=== PATIENT | male | born 1985 | race Two or more races ===

== ENCOUNTER 2022-12-19 17:10 | Inpatient (IN) | payer MEDICAID ==
[~2022-12-19] VITALS: Ht 177.8 cm; Wt 116.4 kg
[2022-12-19 18:38] LABS: Basophils # (auto) 0 10 ^3/uL (0-0.2); Basophils % (auto) 0.2 % (0.0-2.0); Eosinophils # (auto) 0.8 10 ^3/uL (0-0.8); Eosinophils % (auto) 5.7 % (0.0-7.0); Lymphocytes # (auto) 2.7 10 ^3/uL (0.4-5.4); Lymphocytes % (auto) 18.5 % (10.0-50.0); Mean Corpuscular Hemoglobin 30.1 pg (28.0-32.0); Mean Corpuscular Hgb Conc. 34.9 g/dL (32.0-36.0); Mean Corpuscular Volume 86.4 fL (80.0-100.0); Monocytes # (auto) 1.4 10 ^3/uL (0-1.3); Monocytes % (auto) 9.5 % (0.0-12.0); Neutrophils # (auto) 9.7 10 ^3/uL (1.6-8.6); Neutrophils % (auto) 66.1 % (37.0-80.0); Red Blood Cells 4.98 10^6/uL (4.5-5.90); White Blood Cell 14.7 10^3/uL (4.4-10.8)
[2022-12-19 18:40] LABS: Calcium 8.5 mg/dL (8.5-10.1); Potassium 3.8 mmol/L (3.5-5.1)
[2022-12-19 18:43] LABS: BUN/Creatinine Ratio 13.1; Bilirubin, Total 0.5 mg/dL (0.2-1.0); Total Protein 7.4 g/dL (6.4-8.2)
[2022-12-19] MEDS ORDERED: cefTRIAXone 1GM/50ML D5W 50 ML IV ONE (21:00)
[2022-12-19] MEDS ORDERED: metroNIDAZOLE 500MG/100ML 100 ML IV ONE (21:00)
[2022-12-19] MEDS ORDERED: SODIUM CHLORIDE 0.9% 1,000 ML IV ONE (21:00)
[2022-12-19] MEDS ORDERED: MORPHINE SULFATE 4 MG/ML SYR/VIAL IV ONE (21:00)
[2022-12-19] MEDS ORDERED: ONDANSETRON HCL 4 MG/2 ML VIAL IV ONE (21:00)
[2022-12-19] MEDS ORDERED: ACETAMINOPHEN 325 MG TAB PO PRN (22:30)
[2022-12-19] MEDS ORDERED: D5W/SOD CHLO 0.9% 1,000 ML IV SCH (22:30)
[2022-12-19] MEDS ORDERED: ONDANSETRON HCL 4 MG/2 ML VIAL IV PRN (22:30)
[2022-12-19 23:33] LABS: Urine Bacteria NONE SEEN /hpf (None Seen); Urine Blood TRACE /uL (Negative); Urine Mucus FEW (None Seen); Urine Specific Gravity 1.034 (1.001-1.035); Urine WBC 2 /hpf (0 - 3)
[2022-12-19] MEDS ORDERED: MORPHINE SULFATE INJ 2 MG/ml SYRG IV PRN (23:45)
[2022-12-19] MEDS ORDERED: NITROGLYCERIN 0.4 MG SL TAB SL PRN (23:45)
[2022-12-20] MEDS: D5W/SOD CHL 0.45% 1,000 ML IV SCH ×2 (02:34→15:35)
[2022-12-20] MEDS: MORPHINE SULFATE INJ 2 MG/ml SYRG IV PRN ×2 (05:31→10:31)
[2022-12-20] MEDS: metroNIDAZOLE 500MG/100ML 100 ML IV SCH ×3 (05:37→22:38)
[2022-12-20 06:21] LABS: Basophils # (auto) 0 10 ^3/uL (0-0.2); Basophils % (auto) 0.1 % (0.0-2.0); Eosinophils # (auto) 0.7 10 ^3/uL (0-0.8); Eosinophils % (auto) 4.8 % (0.0-7.0); Hematocrit 40.5 % (41.0-53.0); Lymphocytes # (auto) 2.1 10 ^3/uL (0.4-5.4); Lymphocytes % (auto) 15.7 % (10.0-50.0); Mean Corpuscular Hemoglobin 30.7 pg (28.0-32.0); Mean Corpuscular Hgb Conc. 34.6 g/dL (32.0-36.0); Mean Corpuscular Volume 88.8 fL (80.0-100.0); Monocytes # (auto) 1.5 10 ^3/uL (0-1.3); Neutrophils # (auto) 9.2 10 ^3/uL (1.6-8.6); Neutrophils % (auto) 68.4 % (37.0-80.0); Red Blood Cells 4.56 10^6/uL (4.5-5.90); Red Cell Distribution Width 12.6 % (11.8-14.3); White Blood Cell 13.5 10^3/uL (4.4-10.8)
[2022-12-20 06:46] LABS: Potassium 3.6 mmol/L (3.5-5.1)
[2022-12-20 07:04] LABS: Albumin 2.6 g/dL (3.4-5.0); BUN/Creatinine Ratio 13.6
[2022-12-20 07:22] LABS: Bilirubin, Total 0.4 mg/dL (0.2-1.0); Total Protein 6.6 g/dL (6.4-8.2)
[2022-12-20 09:00] VITALS: BP 129/85
[2022-12-20] MEDS: FAMOTIDINE (10MG/ML) 2ML VL IV SCH ×2 (10:14→22:37)
[2022-12-20] MEDS: cefTRIAXone 1GM/50ML D5W 50 ML IV SCH (10:14)
[2022-12-20 13:00] VITALS: BP 127/84
[2022-12-20 17:00] VITALS: BP 128/87
[2022-12-20] MEDS: HYDROcodone-ACET 5/325MG TAB PO PRN (17:32)
[2022-12-20 22:00] VITALS: BP 112/85
[2022-12-21 05:00] VITALS: BP 108/57
[2022-12-21] MEDS: D5W/SOD CHL 0.45% 1,000 ML IV SCH ×3 (05:09→23:30)
[2022-12-21] MEDS: metroNIDAZOLE 500MG/100ML 100 ML IV SCH ×3 (05:31→23:10)
[2022-12-21 06:53] LABS: Basophils # (auto) 0 10 ^3/uL (0-0.2); Basophils % (auto) 0.1 % (0.0-2.0); Eosinophils # (auto) 0.8 10 ^3/uL (0-0.8); Eosinophils % (auto) 5.7 % (0.0-7.0); Hematocrit 39.5 % (41.0-53.0); Hemoglobin 13.7 g/dL (13.5-17.5); Lymphocytes # (auto) 2.2 10 ^3/uL (0.4-5.4); Lymphocytes % (auto) 16.3 % (10.0-50.0); Mean Corpuscular Hemoglobin 30.6 pg (28.0-32.0); Mean Corpuscular Hgb Conc. 34.6 g/dL (32.0-36.0); Mean Corpuscular Volume 88.4 fL (80.0-100.0); Monocytes # (auto) 1.6 10 ^3/uL (0-1.3); Monocytes % (auto) 11.7 % (0.0-12.0); Neutrophils # (auto) 8.9 10 ^3/uL (1.6-8.6); Neutrophils % (auto) 66.2 % (37.0-80.0); Red Blood Cells 4.46 10^6/uL (4.5-5.90); Red Cell Distribution Width 13.1 % (11.8-14.3); White Blood Cell 13.5 10^3/uL (4.4-10.8)
[2022-12-21 07:27] LABS: Potassium 3.6 mmol/L (3.5-5.1)
[2022-12-21 07:34] LABS: BUN/Creatinine Ratio 12.7; Magnesium 2.2 mg/dL (1.6-2.6)
[2022-12-21 08:00] VITALS: BP 121/80
[2022-12-21 09:00] VITALS: BP 121/80
[2022-12-21] MEDS: cefTRIAXone 1GM/50ML D5W 50 ML IV SCH (09:33)
[2022-12-21] MEDS: FAMOTIDINE (10MG/ML) 2ML VL IV SCH ×2 (09:33→23:10)
[2022-12-21 13:00] VITALS: BP 127/87
[2022-12-21] MEDS ORDERED: MAALOX PLUS or MAALOX 30 ML PO ONE (15:15)
[2022-12-21] MEDS: HYDROcodone-ACET 5/325MG TAB PO PRN (16:35)
[2022-12-21 17:00] VITALS: BP 126/86
[2022-12-21 22:00] VITALS: BP 121/79
[2022-12-21] MEDS: MORPHINE SULFATE INJ 2 MG/ml SYRG IV PRN (23:11)
[2022-12-22] VITALS (7 sets, daily range): BP systolic 105–137; BP diastolic 63–81
[2022-12-22] MEDS: metroNIDAZOLE 500MG/100ML 100 ML IV SCH ×3 (05:21→22:19)
[2022-12-22] MEDS: MORPHINE SULFATE INJ 2 MG/ml SYRG IV PRN (05:29)
[2022-12-22] MEDS: cefTRIAXone 1GM/50ML D5W 50 ML IV SCH (08:40)
[2022-12-22] MEDS: FAMOTIDINE (10MG/ML) 2ML VL IV SCH ×2 (08:40→22:19)
[2022-12-22] MEDS: HYDROcodone-ACET 5/325MG TAB PO PRN (08:41)
[2022-12-22] MEDS ORDERED: GASTROGRAFIN 30 ML SOL ONE (12:54)
[2022-12-22] MEDS ORDERED: IOHEXOL 300 MG/ML 100ML BOTTLE IJ ONE ×2 (12:54→15:14)
[2022-12-22] MEDS: D5W/SOD CHL 0.45% 1,000 ML IV SCH (13:44)
[2022-12-23 05:00] VITALS: BP 117/69
[2022-12-23] MEDS: metroNIDAZOLE 500MG/100ML 100 ML IV SCH (06:14)
[2022-12-23 07:48] LABS: Basophils # (auto) 0 10 ^3/uL (0-0.2); Basophils % (auto) 0.1 % (0.0-2.0); Eosinophils # (auto) 1.1 10 ^3/uL (0-0.8); Eosinophils % (auto) 7.6 % (0.0-7.0); Hematocrit 41.4 % (41.0-53.0); Hemoglobin 14.1 g/dL (13.5-17.5); Lymphocytes % (auto) 13.9 % (10.0-50.0); Mean Corpuscular Hemoglobin 30.3 pg (28.0-32.0); Mean Corpuscular Hgb Conc. 34.1 g/dL (32.0-36.0); Mean Corpuscular Volume 88.7 fL (80.0-100.0); Monocytes # (auto) 1.6 10 ^3/uL (0-1.3); Monocytes % (auto) 11.6 % (0.0-12.0); Neutrophils # (auto) 9.4 10 ^3/uL (1.6-8.6); Neutrophils % (auto) 66.8 % (37.0-80.0); Nucleated Red Blood Cells % 0.1 %; Red Blood Cells 4.66 10^6/uL (4.5-5.90); White Blood Cell 14.1 10^3/uL (4.4-10.8)
[2022-12-23 08:00] VITALS: BP 115/73
[2022-12-23 08:51] LABS: Albumin 2.1 g/dL (3.4-5.0); BUN/Creatinine Ratio 10.5; Calcium 7.8 mg/dL (8.5-10.1); Magnesium 2.4 mg/dL (1.6-2.6); Potassium 3.9 mmol/L (3.5-5.1)
[2022-12-23 08:53] LABS: Bilirubin, Total 0.3 mg/dL (0.2-1.0); Total Protein 5.8 g/dL (6.4-8.2)
[2022-12-23 09:00] VITALS: BP 119/70
[2022-12-23] MEDS: FAMOTIDINE (10MG/ML) 2ML VL IV SCH (09:39)
[2022-12-23] MEDS: cefTRIAXone 1GM/50ML D5W 50 ML IV SCH (09:41)
[2022-12-23] MEDS: D5W/SOD CHL 0.45% 1,000 ML IV SCH (10:15)
[2022-12-23] MEDS ORDERED: LEVO500T31 PO (11:24)
[2022-12-23] MEDS ORDERED: METR500T PO (11:24)
[2022-12-23 13:00] VITALS: BP 155/92
== END 2022-12-23 14:05 | disposition home or self-care (01) | DRG 371 ==
LOC: ER 17:10 → OVERFLOW 23:44 → WEST WING 12-20 08:38
PROVIDERS: ADMIT Nurse Practitioner Family; ATTEND Internal Medicine Geriatric Medicine
DX: K63.0 Abscess of intestine (principal); K65.1 Peritoneal abscess; E44.1 Mild protein-calorie malnutrition; E66.01 Morbid (severe) obesity due to excess calories; K52.9 Noninfective gastroenteritis and colitis, unspecified; Z68.34 Body mass index [BMI] 34.0-34.9, adult; Z20.822 Contact with and (suspected) exposure to COVID-19; K81.9 Cholecystitis, unspecified; Z83.3 Family history of diabetes mellitus; M54.50 Low back pain, unspecified
CPT/HCPCS: 36415; 71045; 74176; 74177; 80048; 80053; 81001; 82150; 83690; 83735; 85025; 85048; 87426; G0378; J0696; J3490